=== PATIENT | male | born 1990 | race Asian ===

== ENCOUNTER 2017-02-24 21:10 | Emergency (ER) | payer OTHER ==
[~2017-02-24] VITALS: Ht 172.7 cm; Wt 61.0 kg
[2017-02-24 21:13] VITALS: TEMP 36.9; Ht 172.7 cm; Wt 61.0 kg
[2017-02-24] MEDS ORDERED: ONDANSETRON INJ 2 MG/ML 2 ML VIAL IV STA (21:31)
[2017-02-24] MEDS ORDERED: SODIUM CHLORIDE 0.9% 1000ML 2,000 ML IV STA (21:31)
[2017-02-24] MEDS ORDERED: RANITIDINE HCL 50 MG/100 ML D5W IV STA (21:31)
[2017-02-24 22:12] LABS: COMPLETE YES; IG% 0.4 %; LYMPH % 2.5 %; LYMPH ABS # 0.12 K/uL (1.2-3.4); MEAN CELL VOLUME 87.8 fL (80-100); MEAN CORPUSCULAR HGB CONC 34.2 g/dl (32-36); MEAN PLATELET VOLUME 10.1 fL (7.4-10.4); NEUT % 97.1 %; PLATELET COUNT 124 K/uL (130-400); RED BLOOD COUNT 5.47 M/uL (4.7-6.1); WHITE BLOOD COUNT 4.83 K/uL (4.8-10.8)
[2017-02-24 22:15] VITALS: O2SAT 98
[2017-02-24 22:29] LABS: BUN/CREATININE RATIO 11.2 (10-20); CALCIUM 9.4 mg/dl (8.5-10.1); CREATININE 1.2 mg/dl (0.60-1.40); POTASSIUM 3.5 mmol/L (3.5-5.1)
[2017-02-24] MEDS ORDERED: METOCLOPRAMIDE HCL INJ 5 MG/ML 2 ML VIAL IV STA (23:29)
[2017-02-24] MEDS ORDERED: DiphenhydrAMINE HCL 50 MG/ML VIAL IV STA (23:29)
[2017-02-24 23:51] LABS: URINE APPEARANCE CLEAR (CLEAR); URINE BILIRUBIN NEG (NEG); URINE COLOR YELLOW; URINE NITRITE NEG (NEG); URINE PH 6.5 (4.5-7.5); URINE SPECIFIC GRAVITY 1.013 (1.000-1.030); UROBILINOGEN NEG (NEG); ZZUR CULT IF INDIC CLEAN CATCH NO
[2017-02-25] LABS: MANUAL MICROSCOPIC REQUIRED? NO; REVIEW REQ? NO
--- NOTE | 2017-02-25 00:21 | EMERGENCY ROOM VISIT NOTE ---
History First contact with patient: 21:24 Chief Complaint: GI ASSESSMENT Stated Complaint: CAN'T EAT/DRINK,VOMIT,CONSTIPATION,WEAK,ABD PAIN Nursing Triage Summary: pt to triage via wc with the c/o abd pain with n/v/c. last bm yesterday History of Present Illness The patient is a 27 year old male who presents to the Emergency Room with complaints of nausea vomiting and epigastric discomfort for the past day who states over the past year every few months he has these episodes. Patient states he's had several episodes of vomiting that is nonbloody nonbilious non- coffee-ground in nature. Patient states his abdominal discomfort has now resolved. He cannot keep fluids down. Patient denies diarrhea, chest pain, dyspnea, fever, chills, cough, congestion. No history of heartburn. No history GI bleeding. No recent traveling. No sick contacts. 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 he is originally from [place]. Review of Systems See HPI for pertinent positives & negatives. A total of 10 systems reviewed and were otherwise negative. Past Medical/Surgical History None Social History Smoking Status: Never Smoker Smokeless Tobacco Use: No Alcohol Use: none Drug Use: none Occupation Status: [employer] student Current/Historical Medications No Active Prescriptions or Reported Meds Physical Exam Vital Signs Date Time Temp Pulse Resp B/P (MAP) Pulse Ox O2 Delivery O2 Flow Rate FiO2 02/24/17 23:34 108/50 103/59 96/63 02/24/17 22:48 108 22 112/64 100 Room Air 02/24/17 22:27 109 02/24/17 22:15 98 Room Air 02/24/17 21:13 36.9 113 18 108/65 96 Room Air Physical Exam VITALS: Vitals are noted on the nurse's note and reviewed by myself. Vital signs stable. GENERAL: Pleasant male, in no acute distress, nondiaphoretic, well-developed well-nourished. SKIN: The skin was without rashes, erythema, edema, or bruising. There is no tenting of the skin. Capillary reflex less than 2 seconds. HEAD: Normocephalic atraumatic. EARS: External auditory canals clear, tympanic membranes pearly smith without erythema or effusion bilaterally. EYES: Pupils equal round and reactive to light and accommodation. Conjunctivae without injection, sclerae without icterus. Extraocular movements intact. NOSE: Patent, turbinates without inflammation or discharge. MOUTH: Mucous membranes mildly dry. Pharynx without erythema or exudate. Uvula midline. Airway patent. Tongue does not deviate. NECK: Supple without nuchal rigidity. No lymphadenopathy. No thyromegaly. Cervical spine is nontender. No JVD. HEART: Regular rate and rhythm without murmurs gallops or rubs. LUNGS: Clear to auscultation bilaterally without wheezes, rales or rhonchi. No dullness to percussion. No retractions or accessory muscle use. ABDOMEN: Positive bowel sounds x 4. Normal tympanic percussion. Soft, nontender, without masses or organomegaly. Hooks sign negative. No guarding or rebound tenderness. No CVA tenderness MUSCULOSKELETAL: No muscle atrophy, erythema, or edema noted. NEURO: Patient was alert and oriented to person place and time. Normal sensation to light and sharp touch. No focal neurological deficits. Medical Decision & Procedures Laboratory Results 02/24/17 22:01 Red Blood Count 5.47, Mean Corpuscular Volume 87.8, Mean Corpuscular Hemoglobin 30.0, Mean Corpuscular Hemoglobin Concent 34.2, Mean Platelet Volume 10.1, Neutrophils (%) (Auto) 97.1, Lymphocytes (%) (Auto) 2.5, Monocytes (%) (Auto) 0.0, Eosinophils (%) (Auto) 0.0, Basophils (%) (Auto) 0.0, Neutrophils # (Auto) 4.69, Lymphocytes # (Auto) 0.12, Monocytes # (Auto) 0.00, Eosinophils # (Auto) 0.00, Basophils # (Auto) 0.00 02/24/17 22:01 Test 02/24/17 22:01 02/24/17 23:42 White Blood Count 4.83 K/uL (4.8-10.8) Red Blood Count 5.47 M/uL (4.7-6.1) Hemoglobin 16.4 g/dL (14.0-18.0) Hematocrit 48.0 % (42-52) Mean Corpuscular Volume 87.8 fL (80-100) Mean Corpuscular Hemoglobin 30.0 pg (25-34) Mean Corpuscular Hemoglobin Concent 34.2 g/dl (32-36) Platelet Count 124 K/uL (130-400) Mean Platelet Volume 10.1 fL (7.4-10.4) Neutrophils (%) (Auto) 97.1 % Lymphocytes (%) (Auto) 2.5 % Monocytes (%) (Auto) 0.0 % Eosinophils (%) (Auto) 0.0 % Basophils (%) (Auto) 0.0 % Neutrophils # (Auto) 4.69 K/uL (1.4-6.5) Lymphocytes # (Auto) 0.12 K/uL (1.2-3.4) Monocytes # (Auto) 0.00 K/uL (0.11-0.59) Eosinophils # (Auto) 0.00 K/uL (0-0.5) Basophils # (Auto) 0.00 K/uL (0-0.2) RDW Standard Deviation 38.9 fL (36.4-46.3) RDW Coefficient of Variation 12.1 % (11.5-14.5) Immature Granulocyte % (Auto) 0.4 % Immature Granulocyte # (Auto) 0.02 K/uL (0.00-0.02) Anion Gap 9.0 mmol/L (3-11) Est Creatinine Clear Calc Drug Dose 79.8 ml/min Estimated GFR () 95.5 Estimated GFR (Non- 82.4 BUN/Creatinine Ratio 11.2 (10-20) Calcium Level 9.4 mg/dl (8.5-10.1) Total Bilirubin 2.8 mg/dl (0.2-1) Direct Bilirubin 0.4 mg/dl (0-0.2) Aspartate Amino Transf (AST/SGOT) 16 U/L (15-37) Alanine Aminotransferase (ALT/SGPT) 22 U/L (12-78) Alkaline Phosphatase 76 U/L (45-117) Total Protein 7.9 gm/dl (6.4-8.2) Albumin 4.5 gm/dl (3.4-5.0) Lipase 149 U/L (73-393) Medications Administered Medications (Trade) Dose Ordered Sig/Tim Route Start Time Stop Time Status Last Admin Dose Admin Sodium Chloride 2,000 ml @ 999 mls/hr Q2H1M STAT IV 02/24/17 21:31 02/24/17 23:31 DC 02/24/17 22:12 999 MLS/HR Ondansetron HCl (Zofran Inj) 4 mg NOW STAT IV 02/24/17 21:31 02/24/17 21:32 DC 02/24/17 22:12 4 MG Ranitidine HCl (zANTac IV) 50 mg NOW STAT IV 02/24/17 21:31 02/24/17 21:32 DC 02/24/17 22:12 50 MG Metoclopramide HCl (Reglan Inj) 10 mg NOW STAT IV 02/24/17 23:29 02/24/17 23:30 DC 02/24/17 23:40 10 MG Diphenhydramine HCl (Benadryl Inj) 12.5 mg NOW STAT IV 02/24/17 23:29 02/24/17 23:30 DC 02/24/17 23:40 12.5 MG ED Course Prior records/ancillary studies reviewed. Triage Nursing notes reviewed. Additional history obtained from the family. The patient's history was concerning for nausea, vomiting, and abdominal pain. Differential diagnosis: Etiologies such as gastritis, food borne illness, infections, appendicitis, diverticulitis, inflammatory bowel disease, obstruction, GI bleed, biliary pathology, as well as others were entertained. Physical examination findings: As above. Abdominal examination revealed no tenderness. Vital signs reviewed and revealed stable. ER treatment provided: IV hydration 2 L NSS. Zofran, Zantac On reassessment the patient felt better. Patient was tolerating p.o. intake. Diagnostics interpretation by me: The labs revealed stable H&H. Elevated bilirubin. Normal LFTs This appears to be consistent with vomiting has been intermittent for the past few months who is currently now tolerating fluids. She has no known history of Gilbert syndrome. He has not had any recent blood work. He was advised follow- up health services for his elevated bilirubin.. Patient was tolerating fluids. He was neurovascularly and neurologically intact. He did not have acute abdomen on exam. He was advised to do clear liquid diet today and progress as tolerated to bland diet tomorrow. He was advised to follow-up health services in a few days or here in the ER sooner for abdominal pain, fevers, vomiting, worsening signs or symptoms or as needed. He is advised if this episodic vomiting persists that he see GI for further evaluation and workup. By the evaluation outlined above emergent etiologies such as appendicitis, diverticulitis, obstruction, cardiac sources, mesenteric ischemia, aortic pathology, inflammatory bowel disease, renal colic, PUD, biliary pathology, UTI , as well as others were deemed relatively unlikely. The pt informed about the findings as listed above. All questions were answered and pleased with the treatment. Return instructions were outlined and the patient was discharged in stable condition. Outpatient prescription management: zofran Referral: The patient was referred to their primary care physician for follow-up in 2 to 3 days for a recheck of the current condition. Medical Decision as above Medication Reconcilliation Current Medication List: was personally reviewed by me Blood Pressure Screening Patient's blood pressure: Normal blood pressure Impression Primary Impression: Nausea & vomiting Additional Impression: Elevated bilirubin Departure Information Dispostion Home / Self-Care Condition GOOD Prescriptions No Active Prescriptions or Reported Meds Referrals [facility] (PCP) Patient Instructions My [facility] Additional Instructions DO NOT drive, drink alcohol, operate machinery, or perform dangerous activities today. You were given medications in the ER that can affect your ability to safely function or operate a vehicle. Your bilirubin was elevated today. Follow-up with health services for this. Zofran(odansetron) tablets 4mg: Take one and allow it to dissolve in your mouth every four to six hours as needed for nausea or vomiting. Acetaminophen(Tylenol) may be used for fever or pain. Use 1000mg every six hours as needed. Avoid using more than 3000mg in a 24 hour period. Rest and drink plenty of fluids as tolerated. Slow sips of water or sports drinks are recommended instead of large amounts all at once. Continue current medications. Once your stomach is settled start with a clear liquid diet (jello, soup broth, etc.) and then advance as tolerated. You should avoid full, heavy meals for about 24 hrs from the time your symptoms resolved. Return to the ER for persistent vomiting, fevers, abdominal pain, chest pains, difficulty breathing, black or bloody stools, worsening of your condition, or as needed. Follow up with your primary physician in 2-3 days for a recheck of your current condition. Problem Qualifiers Primary Impression: Nausea & vomiting Vomiting type: unspecified Vomiting Intractability: non-intractable Qualified Codes: R11.2 - Nausea with vomiting, unspecified
[2017-02-25] MEDS ORDERED: ONDANSETRON HOME PACK 4MG OD TAB PO ONE (00:30)
[2017-02-25 00:43] VITALS: BP 105/66; PULSE 99; O2SAT 99
== END 2017-02-25 00:44 | disposition home or self-care (01) ==
LOC: C.EDB 21:11 → C.EDC 02-25 00:44
DX: R11.2 Nausea with vomiting, unspecified (principal); R17 Unspecified jaundice

== ENCOUNTER → 2017-03-03 | Outpatient (CLI) | payer OTHER ==
--- NOTE | 2017-03-03 10:15 | DIAGNOSTIC IMAGING REPORT ---
ABDOMINAL ULTRASOUND, RIGHT UPPER QUADRANT HISTORY: Vomiting.. COMPARISON: None. FINDINGS: Pancreas: The pancreas demonstrates a normal echotexture. Liver: Unremarkable. Gallbladder: No gallbladder wall thickening. No gallstones. CBD: 5 mm. Right kidney: No hydronephrosis. IMPRESSION: No significant abnormality identified within the right upper quadrant. Electronically signed by: Mohit Kevin M.D. 03/03/2017 10:13 AM Dictated Date/Time: 03/03/2017 10:13 AM
== END | disposition home or self-care (01) ==
LOC: C.ULTR 09:17
PROVIDERS: ATTEND Physician Assistant
DX: R11.10 Vomiting, unspecified (principal)

== ENCOUNTER → 2017-03-24 | Outpatient (CLI) | payer OTHER ==
[~2017-03-24] MED LIST: SINCALIDE INJ 1.4 MCG in SODIUM CHLORIDE 0.9% 100ML 100 ML IV ONE
--- NOTE | 2017-03-24 13:04 | DIAGNOSTIC IMAGING REPORT ---
NUCLEAR MEDICINE HEPATOBILIARY SCAN WITH GALLBLADDER EJECTION FRACTION CLINICAL HISTORY: Abdominal pain, vomiting and nausea. COMPARISON: Right upper quadrant ultrasound March 03, 2017. TECHNIQUE: 5.5 mCi of technetium 99m Choletec IV was injected at 10:45 AM on 2016. Immediately following injection, imaging of the abdomen was carried out for 60 minutes in the anterior projection. At this time, 1.4 mcg of Sincalide was injected IV as per protocol. Imaging was performed for an additional 45 minutes to estimate a gallbladder ejection fraction. FINDINGS: Hepatic uptake of radiotracer is prompt and homogeneous. Activity is identified within the common bile duct and gallbladder at 10 minutes. Small bowel activity is first identified at 75 minutes. This represents a nonspecific finding. Gallbladder ejection fraction was estimated at 94% which is normal (normal is greater than 30-35%). IMPRESSION: 1. No evidence of acute or chronic cholecystitis. 2. Normal gallbladder ejection fraction of 94%. 3. Delayed visualization of small bowel activity, a nonspecific finding that could be due to spasm, sphincter dysfunction or partial common bile duct obstruction. Electronically signed by: Michael Grace M.D. 03/24/2017 1:02 PM Dictated Date/Time: 03/24/2017 1:00 PM
== END | disposition home or self-care (01) ==
LOC: C.NUCL 10:28
PROVIDERS: ATTEND Physician Assistant
DX: R10.9 Unspecified abdominal pain (principal); R11.2 Nausea with vomiting, unspecified

== ENCOUNTER → 2018-02-14 | Outpatient (CLI) | payer OTHER ==
[2018-02-14 13:25] LABS: BASO % 0.3 %; BASO ABS # 0.01 K/uL (0-0.2); EOS ABS # 0.04 K/uL (0-0.5); HEMATOCRIT 44.1 % (42-52); HEMOGLOBIN 15.3 g/dL (14.0-18.0); LYMPH % 39.1 %; LYMPH ABS # 1.55 K/uL (1.2-3.4); MEAN CELL VOLUME 87.7 fL (80-100); MEAN CORPUSCULAR HEMOGLOBIN 30.4 pg (25-34); MEAN CORPUSCULAR HGB CONC 34.7 g/dl (32-36); MEAN PLATELET VOLUME 10.6 fL (7.4-10.4); MONO % 7.8 %; MONO ABS # 0.31 K/uL (0.11-0.59); NEUT % 51.8 %; NEUT ABS # 2.05 K/uL (1.4-6.5); PLATELET COUNT 169 K/uL (130-400); RED CELL DISTRIBUTION WIDTH CV 12.4 % (11.5-14.5); RED CELL DISTRIBUTION WIDTH SD 39.4 fL (36.4-46.3); WHITE BLOOD COUNT 3.96 K/uL (4.8-10.8)
[2018-02-14 14:07] LABS: ALBUMIN 4.2 gm/dl (3.4-5.0); ALKALINE PHOSPHATASE 55 U/L (45-117); ALT/SGPT 30 U/L (12-78); AST/SGOT 28 U/L (15-37); BLOOD UREA NITROGEN 14 mg/dl (7-18); CARBON DIOXIDE 28 mmol/L (21-32); CHOLESTEROL 181 mg/dl (0-200); CREATININE 0.97 mg/dl (0.60-1.40); GLUCOSE 83 mg/dl (70-99); LDL CHOLESTEROL CALCULATED 108 mg/dl; SODIUM 138 mmol/L (136-145); TOTAL PROTEIN 7.5 gm/dl (6.4-8.2)
== END | disposition home or self-care (01) ==
LOC: C.LAB 12:23
PROVIDERS: ATTEND Psychiatry & Neurology Psychiatry
DX: F41.1 Generalized anxiety disorder (principal)

== ENCOUNTER 2018-02-28 19:46 | Emergency (ER) | payer OTHER ==
[~2018-02-28] VITALS: Ht 172.7 cm; Wt 62.1 kg
[2018-02-28 19:48] VITALS: TEMP 36.3; Ht 172.7 cm; Wt 62.1 kg
[2018-02-28] MEDS ORDERED: SODIUM CHLORIDE 0.9% 1000ML 1,000 ML IV STA (19:58)
[2018-02-28 20:23] LABS: BASO % 0.1 %; BASO ABS # 0.01 K/uL (0-0.2); EOS % 0.5 %; EOS ABS # 0.04 K/uL (0-0.5); HEMATOCRIT 46.6 % (42-52); IG# 0.02 K/uL (0.00-0.02); LYMPH % 7.4 %; LYMPH ABS # 0.58 K/uL (1.2-3.4); MEAN CELL VOLUME 88.6 fL (80-100); MEAN CORPUSCULAR HEMOGLOBIN 30.4 pg (25-34); MEAN CORPUSCULAR HGB CONC 34.3 g/dl (32-36); MEAN PLATELET VOLUME 10.3 fL (7.4-10.4); MONO % 6.3 %; NEUT % 85.4 %; NEUT ABS # 6.74 K/uL (1.4-6.5); PLATELET COUNT 141 K/uL (130-400); RED CELL DISTRIBUTION WIDTH CV 12.2 % (11.5-14.5); RED CELL DISTRIBUTION WIDTH SD 38.9 fL (36.4-46.3); WHITE BLOOD COUNT 7.89 K/uL (4.8-10.8)
[2018-02-28 20:40] LABS: CREATININE 1.04 mg/dl (0.60-1.40); POTASSIUM 4.2 mmol/L (3.5-5.1)
[2018-02-28 21:28] VITALS: BP 118/70; PULSE 80; O2SAT 98
[2018-02-28] MEDS ORDERED: ONDANSETRON HOME PACK 4MG OD TAB PO ONE (21:30)
--- NOTE | 2018-02-28 22:33 | EMERGENCY ROOM VISIT NOTE ---
History Report prepared by Gurpreetibjamie: Lita Short Under the Supervision of: Dr. Natalio Foy M.D. First contact with patient: 19:53 Chief Complaint: FEVER Stated Complaint: FEVER,DIARRHEA History of Present Illness The patient is a 28 year old male who presents to the Emergency Room with complaints of a persistent diarrhea for the past 2 hours. He describes the diarrhea as being "watery" and denies any blood in his stool. He has experienced no abdominal pain. He states he feels "warm" and has been dizzy for the past 2 hours as well. He denies any vomiting. He denies any recent antibiotic use, sick contacts or recent foreign travel. He has been urinating normally. 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 A total of 10 systems reviewed and were otherwise negative. 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 Eyes: Pupils are equal round reactive to light. Conjunctiva are noninjected. ENT: Pharynx is clear without erythema or exudate. Mucous membranes are slightly dry. Neck supple without meningeal signs. Respiratory: Clear to auscultation bilaterally. Breath sounds are equal bilaterally. Cardiovascular: Regular rate and rhythm. No rubs or gallops. GI: Soft, nondistended and nontender. Bowel sounds are present. Musculoskeletal: No peripheral edema. No lower extremity tenderness. Integumentary: No cyanosis. Neurological: The patient is awake and alert. No focal deficits. Psychiatric: Normal affect. Medical Decision & Procedures Laboratory Results 02/28/18 20:15 Red Blood Count 5.26, Mean Corpuscular Volume 88.6, Mean Corpuscular Hemoglobin 30.4, Mean Corpuscular Hemoglobin Concent 34.3, Mean Platelet Volume 10.3, Neutrophils (%) (Auto) 85.4, Lymphocytes (%) (Auto) 7.4, Monocytes (%) (Auto) 6.3, Eosinophils (%) (Auto) 0.5, Basophils (%) (Auto) 0.1, Neutrophils # (Auto) 6.74, Lymphocytes # (Auto) 0.58, Monocytes # (Auto) 0.50, Eosinophils # (Auto) 0.04, Basophils # (Auto) 0.01 02/28/18 20:15 Test 02/28/18 20:15 White Blood Count 7.89 K/uL (4.8-10.8) Red Blood Count 5.26 M/uL (4.7-6.1) Hemoglobin 16.0 g/dL (14.0-18.0) Hematocrit 46.6 % (42-52) Mean Corpuscular Volume 88.6 fL (80-100) Mean Corpuscular Hemoglobin 30.4 pg (25-34) Mean Corpuscular Hemoglobin Concent 34.3 g/dl (32-36) Platelet Count 141 K/uL (130-400) Mean Platelet Volume 10.3 fL (7.4-10.4) Neutrophils (%) (Auto) 85.4 % Lymphocytes (%) (Auto) 7.4 % Monocytes (%) (Auto) 6.3 % Eosinophils (%) (Auto) 0.5 % Basophils (%) (Auto) 0.1 % Neutrophils # (Auto) 6.74 K/uL (1.4-6.5) Lymphocytes # (Auto) 0.58 K/uL (1.2-3.4) Monocytes # (Auto) 0.50 K/uL (0.11-0.59) Eosinophils # (Auto) 0.04 K/uL (0-0.5) Basophils # (Auto) 0.01 K/uL (0-0.2) RDW Standard Deviation 38.9 fL (36.4-46.3) RDW Coefficient of Variation 12.2 % (11.5-14.5) Immature Granulocyte % (Auto) 0.3 % Immature Granulocyte # (Auto) 0.02 K/uL (0.00-0.02) Anion Gap 10.0 mmol/L (3-11) Est Creatinine Clear Calc Drug Dose 92.9 ml/min Estimated GFR () 112.7 Estimated GFR (Non- 97.3 BUN/Creatinine Ratio 18.1 (10-20) Calcium Level 9.0 mg/dl (8.5-10.1) Laboratory results as reviewed by me. Medications Administered Medications (Trade) Dose Ordered Sig/Tim Route Start Time Stop Time Status Last Admin Dose Admin Sodium Chloride 1,000 ml @ 999 mls/hr Q1H1M STAT IV 02/28/18 19:58 02/28/18 20:58 DC 02/28/18 20:13 999 MLS/HR ED Course 1954: The patient was evaluated in room B10. A complete history and physical exam was performed. 1957: NSS 1000 ml @ 999 mls/hr IV. 2114: I reevaluated the patient. He is resting comfortably and feeling better. I discussed his results and discharge instructions and he verbalized complete understanding and agreement. 2129: Zofran 4 mg 1 homepack PO. Medical Decision This is a 28-year-old male who presents with diarrhea. Differential diagnosis includes enteritis, foodborne illness, dehydration, electrolyte abnormality. I did perform a limited focused review of portions of the patient's old chart on the electronic medical record. The patient had unremarkable blood work on February 23 except for a WBC of 4.4. I did evaluate the patient as noted above. IV access was established. I did treat patient with normal saline IV. I did order and review the patient's blood work as noted in the electronic medical record. His labs are unremarkable. I did discuss the test results with the patient. He states reason he came in was he had a similar illness form of currently vomiting but he was given Zofran home pack should he start vomiting. He was advised to follow-up at [facility] and discharged in good condition. Medication Reconcilliation Current Medication List: was personally reviewed by me Blood Pressure Screening Patient's blood pressure: Normal blood pressure Blood pressure disposition: Did not require urgent referral Impression Primary Impression: Diarrhea Scribe Attestation The scribe's documentation has been prepared under my direct and personally reviewed by me in its entirety. I confirm that the note above accurately reflects all work, treatment, procedures, and medical decision making performed by me. Departure Information Dispostion Home / Self-Care Prescriptions No Active Prescriptions or Reported Meds Referrals No Doctor, Assigned (PCP) Patient Instructions ED Vomiting Diarrhea Nonspecific Ad, My [facility], Ondansetron oral dissolving tablet Additional Instructions You have been examined and treated today on an emergency basis only. This is not a substitute for, or an effort to provide, complete comprehensive medical care. It is impossible to recognize and treat all injuries or illnesses in a single emergency department visit. It is therefore important that you follow up closely with [facility]. Call as soon as possible for an appointment. Return for worsening symptoms or if you develop fever, intractable vomiting, abdominal pain or any other concerning symptoms. Problem Qualifiers Primary Impression: Diarrhea Diarrhea type: unspecified type Qualified Codes: R19.7 - Diarrhea, unspecified
== END 2018-02-28 21:28 | disposition home or self-care (01) ==
LOC: C.EDB 19:47
DX: R19.7 Diarrhea, unspecified (principal)